=== PATIENT | male | born 1995 | race Caucasian/White ===

== ENCOUNTER 2021-02-07 14:08 | Emergency (ER) | payer BC, SELFPAY ==
--- NOTE | 2021-02-07 14:14 | ED.URI ---
HPI - URI/Sore Throat General Chief Complaint: Upper Respiratory Infection Stated Complaint: fever/joint pain/vomiting Time Seen by Provider: 02/07/21 14:49 Source: patient and RN notes reviewed Mode of arrival: ambulatory Limitations: no limitations History of Present Illness HPI Narrative: 25-year-old male presents with concern for 2-day history of cough, body aches, headache, one episode of vomiting. Reports exposure to Covid and flu. He denies [id number] intervention. MD elicited complaint: cough and sore throat Related Data Allergies Allergy/AdvReac Type Severity Reaction Status Date / Time cefaclor [From Ceclor] Allergy Unknown Verified 02/07/21 14:21 Review of Systems Review of Systems: CONSTITUTIONAL: Reports malaise, fatigue. Denies chills, sweats, or fever. EYES: Denies visual changes, redness, or discharge. ENT: Reports rhinorrhea, congestion. Denies sinus pain, otalgia and sore throat. CARDIOVASCULAR: Denies chest pain, palpitations, or edema. RESPIRATORY: Reports cough. Denies dyspnea. GASTROINTESTINAL: Denies abdominal pain, diarrhea. Reports nausea and vomiting SKIN: Denies rash or itching. MUSCULOSKELETAL: Reports myalgia. NEUROLOGIC: Reports headache. All systems reviewed & are unremarkable except as noted in HPI and below PMFSH Comments At time of signature, agree with nursing past medical, surgical, social and family history. There is no relevant family history pertinent to the presenting complaint Exam Narrative: GENERAL: Well-appearing, well-nourished, and in no acute distress. HEAD: Normocephalic EYES: PERRLA, conjunctivae clear ENT: Nares clear, turbinates edematous and erythematous, clear discharge. Mucous membranes moist. TM pearly thurman with dull light reflex bilaterally; no tragal tenderness. Oropharynx not erythematous without lesions. Tonsils not enlarged and without exudate, no drooling, no hoarseness, no trismus, uvula midline. NECK: Supple. No lymphadenopathy CHEST: Clear to auscultation, breath sounds equal. No wheezing, rhonchi, rales, or stridor. No respiratory distress, speaks in full sentences. HEART: Regular rate and rhythm. No murmur heard. SKIN: Warm, dry, no rash. NEURO: Alert and oriented x3. PSYCH: Normal mood and affect Course Course Emergency Course: Patient is aware of diagnosis, understands and agrees to treatment plan. Anticipatory guidance given. Patient agrees to follow-up as directed and is aware of reasons to seek care at the emergency department. Portions of this record may have been created with voice recognition software Vital Signs Vital signs: Reviewed. MDM - URI/Sore Throat MDM Narrative Medical decision making narrative: Differential diagnosis considered: Moya virus, strep pharyngitis, allergic rhinitis, upper respiratory tract infection, sinusitis, rhinosinusitis, nasopharyngitis. viral pharyngitis, otitis media, otitis externa, pneumonia, bronchitis, viral cough syndrome, viral syndrome, and influenza. Exam findings show no acute concerns or changes; patient is non-toxic appearing and is in no distress. Patient is appropriate for outpatient treatment and follow-up. Lab Data Attestation: I reviewed the patient's lab results. Critical Care Time Critical Care Time Critical Care Time: No Discharge Plan Discharge Clinical Impression: Influenza A Patient Disposition: Home, Self-Care Condition: Stable Instructions: Influenza (ED) Additional Instructions: -Your symptoms are likely caused by a virus, and antibiotic does not cure viral illness. -Take strict precautions to prevent the spread of your virus. Be diligent about covering your cough (even when you are alone) and washing your hands frequently. -You may contagious until you have been symptom and/or fever free for 72 hours without fever reducing medicine - or 10 days from the start of your symptoms - whichever is longer -Alternate Ibuprofen and Tylenol for pain and fever relief (per package
[2021-02-07 14:18] VITALS: BP 134/69; PULSE 124; RESP 20; TEMP 36.1; O2SAT 98
== END 2021-02-07 15:03 | disposition home or self-care (01) ==
PROVIDERS: Emergency Provider Nurse Practitioner
DX: J10.1 Influenza due to other identified influenza virus with other respiratory manifestations (principal); Z20.822 Contact with and (suspected) exposure to COVID-19
CPT/HCPCS: 87426; 87804; 99213; C9803; G0463

== ENCOUNTER 2021-06-20 00:23 | Observation (INO) | payer BC, SELFPAY ==
[2021-06-20] VITALS (12 sets, daily range): BP systolic 112–151; BP diastolic 57–96; PULSE 84–109; RESP 12–108; TEMP 36.1–37.4; O2SAT 95–98; BMI 38.5
[2021-06-20 00:44] LABS: Alveolar/Arterial O2 Gradient 24.9 mmHg; Base Excess ABG 0.7 mEq/l (+/-2.0); Fractional Inspired Oxygen 21 %; HCO3 ABG 25.9 mEq/l (22.0-26.0); Oxygen Content ABG 21.6 %vol (16.0-22.0); Oxygen Saturation ABG 94.6 % (95.0-100.0); Oxyhemoglobin 93.9 % THb (90.0-100.0); PCO2 ABG 43.3 mmHg (35.0-45.0); PO2 FiO2 Ratio Arterial Blood 3.48 %; Total Hemoglobin 16.4 g/dL (12.0-18.0); pH ABG 7.394 (7.350-7.450)
[2021-06-20 00:49] LABS: Device ROOM AIR; Modified Allen's Test Unable to perform; Site Drawn LEFT RADIAL
--- NOTE | 2021-06-20 00:57 | ECG_ITS ---
Measurements Intervals [place] Rate: 108 P: 63 [place]: 134 QRS: -11 QRSD: 110 T: 61 QT: 274 QTc: 368 Interpretive Statements SINUS TACHYCARDIA INCOMPLETE RIGHT BUNDLE BRANCH BLOCK NONSPECIFIC ST & T-WAVE ABNORMALITY- DIFFUSE LEADS ABNORMAL ECG Electronically Signed On 06-20-2021 6:33:35 CDT by Cristiano Hayden D.O.
[2021-06-20 00:59] LABS: Basophils Percent Auto 0.5 % (0.2-1.2); Eosinophils Absolute Auto 0.2 K/mm3 (0-0.3); Eosinophils Percent Auto 2.6 % (0-4.4); Hematocrit 47.5 % (42.0-52.0); Immature Granulocyte Absolute 0.02 K/mm3 (0.00-0.031); Immature Granulocyte Percent A 0.2 % (0-0.5); Lymphocytes Absolute Auto 2.95 K/mm3 (0.9-3.2); Lymphocytes Percent Auto 33.7 % (18.3-44.2); Mean Corpuscular HGB Conc 33.7 g/dl (32-36); Mean Corpuscular Hemoglobin 28.8 pg (26-34); Mean Corpuscular Volume 85.6 fl (80-100); Mean Platelet Volume 10.2 fl (7.4-10.4); Monocytes Absolute Auto 0.8 K/mm3 (0.1-0.6); Monocytes Percent Auto 9.3 % (2.6-8.5); Neutrophils Absolute Auto 4.7 K/mm3 (1.3-6.7); Neutrophils Percent Auto 53.7 % (45.5-73.1); Platelet Count Result 236 k/mm3 (150-375); Red Blood Count 5.55 M/mm3 (4.6-6.20); Red Cell Distribution Width 13.1 % (11.5-14.5); White Blood Count 8.8 K/mm3 (4.5-10.0)
[2021-06-20 01:01] LABS: Appearance Urine Clear (Clear); Bilirubin Urine Negative (Negative); Blood Urine 1+ (Negative); Color Urine Yellow (Yellow); Glucose Urine UA Negative (Negative); Ketones Urine Negative (Negative); Leukocyte Esterase Ur Negative LEU/UL (Negative); Nitrate Urine Negative (Negative); Protein Urine 1+ mg/dL (Negative); Specific Grav Ur >= 1.030 (1.001-1.035); Urobilinogen Urine 0.2 mg/dL (<2.0); pH Urine 5.5 (5.0-9.0)
[2021-06-20 01:03] LABS: Ammonia < 9 umol/L (9-30)
--- NOTE | 2021-06-20 01:07 | ED.GENADULT ---
HPI - General Adult General Chief complaint: Overdose Stated complaint: OD History of Present Illness HPI narrative: 26-year-old male presented to the emergency department for evaluation after a reported intentional overdose. Patient got into an argument with his girlfriend and reportedly took multiple pills. Tylenol was a possibility, but patient was also found with an empty bottle of Benadryl that held 365 tablets of 25 mg. Related Data Home Medications Medication Instructions Recorded Confirmed No Home Medications 06/20/21 06/20/21 Allergies Allergy/AdvReac Type Severity Reaction Status Date / Time cefaclor [From Ceclor] Allergy Unknown Verified 02/07/21 14:21 Review of Systems Review of Systems: ROS unobtainable: Yes unobtainable due to medical condition PMF Social History Social History Smoking status: Never smoker Alcohol intake: never Substance use: never Spiritual care concerns: No Exam Narrative: APPEARANCE: Somnolent and disorientated HEAD: normocephalic, atraumatic. EYES: PERRLA/EOMI, conjunctivae clear. NOSE: Normal no drainage NECK: Supple. No adenopathy, no masses. RESPIRATORY: Airway patent, respirations nonlabored. Clear to auscultation bilaterally, no rales, rhonchi, wheezing. CARDIOVASCULAR: Regular rate and rhythm without murmurs rubs or gallops. ABDOMINAL: Soft, nontender, nondistended, normal bowel sounds MUSCULOSKELETAL: Moves all extremities. Strength/ROM intact, No edema, No calf tenderness. NEURO: Alert. Cranial nerves II through XII intact. Grossly intact. Present gag reflex SKIN: Warm, dry. Normal Color PSYCHIATRIC: Normal affect/mood. Course Course Emergency Course: Patient is being admitted for a suspected diphenhydramine overdose. Poison control was consulted. They state the peak is 2 to 3 hours after ingestion but that due to the potential amount of his ingestion the peak may be delayed. Case was discussed with the fur stretcher and patient was accepted for admission by the hospitalist. Patient was stable at time of transfer to the floor. Patient's Tylenol at the first lab draw was negative. Patient's UDS is otherwise negative and alcohol was negative Vital Signs Vital signs: Vital Signs Temperature 97 F L 06/20/21 00:22 Pulse Rate 109 H 06/20/21 00:22 Respiratory Rate 24 H 06/20/21 00:22 Blood Pressure 142/94 H 06/20/21 00:22 Pulse Oximetry 95 06/20/21 00:22 Temperature 98.2 F 06/20/21 03:43 Pulse Rate 103 H 06/20/21 06:00 Respiratory Rate 19 06/20/21 06:00 Blood Pressure 134/82 06/20/21 06:00 Pulse Oximetry 95 06/20/21 06:00 Medical Decision Making Vital Signs Vital Signs: Vital Signs Temperature 97 F L 06/20/21 00:22 Pulse Rate 109 H 06/20/21 00:22 Respiratory Rate 24 H 06/20/21 00:22 Blood Pressure 142/94 H 06/20/21 00:22 Pulse Oximetry 95 06/20/21 00:22 Temperature 98.2 F 06/20/21 03:43 Pulse Rate 103 H 06/20/21 06:00 Respiratory Rate 19 06/20/21 06:00 Blood Pressure 134/82 06/20/21 06:00 Pulse Oximetry 95 06/20/21 06:00 Lab Data Result diagrams: 06/20/21 00:44 06/20/21 00:44 Labs: Lab Results 06/20/21 06/20/21 06/20/21 Range/Units 00:44 00:44 00:44 WBC (4.5-10.0) K/mm3 RBC (4.6-6.20) M/mm3 Hgb (14.0-18.0) g/dL Hct (42.0-52.0) % MCV (80-100) fl MCH (26-34) pg MCHC (32-36) g/dl RDW (11.5-14.5) % Plt Count (150-375) k/mm3 MPV (7.4-10.4) fl Immature Gran % (Auto) (0-0.5) % Neut % (Auto) (45.5-73.1) % Lymph % (Auto) (18.3-44.2) % Scott % (Auto) (2.6-8.5) % Eos % (Auto) (0-4.4) % Baso % (Auto) (0.2-1.2) % Lymph # (Auto) (0.9-3.2) K/mm3 Scott # (Auto) (0.1-0.6) K/mm3 Eos # (Auto) (0-0.3) K/mm3 Baso # (Auto) (0.0-0.1) K/mm3 Abs Immat Gran (auto) (0.00-0.031) K/mm3 Absolute Neuts (auto) (1.3-6.7) K/mm3 Absolute Nucleated RBC (0.0
[2021-06-20 01:10] LABS: Alanine Aminotransferase 37 U/L (6-50); Albumin Level 4.6 g/dL (3.5-5.1); Alkaline Phosphatase 78 U/L (38-126); Anion Gap 11 mmol/L (8-16); Aspartate Amino Transferase 36 U/L (17-59); Bilirubin,Total 0.3 mg/dL (0.2-1.3); Blood Urea Nitrogen 18 mg/dL (9-20); Calcium 9.1 mg/dL (8.4-10.2); Carbon Dioxide 26 mmol/L (22-30); Chloride 102 mmol/L (98-107); Estimated Glomerular Filt Rate > 60; Glucose 119 mg/dL (65-110); Magnesium 1.8 mg/dL (1.6-2.3); Phosphorus 3.5 mg/dL (2.5-4.5); Potassium 3.3 mmol/L (3.4-5.0); Sodium 139 mmol/L (137-145)
[2021-06-20 01:11] LABS: Bacteria Urine Trace /hpf; Mucus Urine Rare /lpf; Squamous Epithelial Cell Urine Rare /hpf (Few)
[2021-06-20 01:12] LABS: Partial Thromboplastin Time 22.9 SECONDS (22.3-36.8); Prothrombin Time 12.7 Seconds (11.1-14.7)
[2021-06-20 01:15] LABS: Add Urine Microscopic? YES; Amphetamine Screen Urine Negative (Negative); Barbiturate Screen Urine Negative (Negative); Benzodiazepines Screen Urine Negative (Negative); Cannabinoid Screen Urine Negative (Negative); Cocaine Screen Urine Negative (Negative); Methadone Screen Urine Negative (Negative); Opiate Screen Urine Negative (Negative); Phencyclidine Screen Urine Negative (Negative)
[2021-06-20 01:16] LABS: Acetaminophen < 10 ug/mL (10-30); Ethanol < 10 mg/dL (<10); Salicylate < 1.0 mg/dL (2-20)
[2021-06-20 01:33] LABS: Digoxin < 0.4 ng/mL (0.8-2.0)
--- NOTE | 2021-06-20 02:47 | PM.IMHP ---
H&P: HPI History of Present Illness Date/Time: 06/20/21 02:47 Chief Complaint: Altered mental status. Narrative: This is a 26-year-old male with past medical history significant for obesity. Patient is brought to the emergency room via EMS after girlfriend found him to be altered, disoriented, confused, acting weird patient's girlfriend found an empty Benadryl bottle in the trash. According to girlfriend they had a fight and she left the house does came back an hour later and this was the situation. No prior history of psychiatric illness or suicidal attempt in the past. Patient has been in his usual state of health according to his girlfriend. Patient was unable to give any history at the time of my visit he was having emesis, when asked why he was in the hospital his said that he be passed out and dozed off. Poison Control was informed and was advised to place the patient in observation. Patient has been admitted for further evaluation management and treatment. Review of Systems Review of Systems: ROS unobtainable: Yes unobtainable due to mental status (Confusion, disorientation.) [facility] Social History Social History Smoking status: Never smoker Alcohol intake: never Substance use: never Spiritual care concerns: No Meds Home Medications and Allergies Home Medications Medication Instructions Recorded Confirmed Type No Home Medications 06/20/21 06/20/21 History Allergies Allergy/AdvReac Type Severity Reaction Status Date / Time cefaclor [facility]] Allergy Unknown Verified 02/07/21 14:21 Vital Signs Vital Signs - 24 hr 06/20/21 00:22 06/20/21 02:13 06/20/21 02:15 Temperature 97 F L Pulse Rate 109 H 103 H Respiratory Rate 24 H 12 108 H Blood Pressure 142/94 H 136/83 Pulse Oximetry 95 98 Exam Narrative: Patient is laying in a stretcher. Const: General: comfortable, no acute distress, well developed, intoxicated appearing and well groomed Nutritional Appearance: obese Orientation/consciousness: oriented to person Limitations: altered mental status HENMT: Head: normal to inspection, normocephalic and atraumatic Ears: hearing grossly normal bilaterally General nose exam: Normal external nose present Face and sinus: normal facial exam Mouth: Yes Normal oral and palatal mucosa present Eyes: General: appearance normal, both eyes and all related structures Alignment and Position: alignment normal Sclera: sclerae normal Pupils: Equal, round and reactive pupils present EOM: EOMs intact bilaterally Neck: Neck: normal visual inspection, full ROM, no lymphadenopathy, supple and no JVD Thyroid: thyroid normal Lymphatic: no lymphadenopathy noted Resp: Effort & Inspection: normal respiratory effort and able to speak in complete sentences Auscultation: clear to auscultation bilaterally, no crackles, no rales, no rhonchi and no wheezes Cardio: Jugular venous distension: no JVD Rate: tachycardic Rhythm: regular rhythm Heart sounds: S1 normal heart sound present and S2 normal heart sound present GI: Inspection: obesity GI Palp: Yes Soft to palpation, No Tenderness to palpation present (GI), No Guarding due to palpation present (GI), Yes No hepatosplenomegaly present and No Rebound tenderness present : General: Yes deferred Skin: Rashes: no rashes Wounds: no wounds Neuro: General: oriented to person and CN's II-XI intact bilaterally Cranial nerves: Yes CN's II-XII intact bilaterally and Yes Equal, round and reactive pupils present Cognition (Neuro): abnormal cognition (Confusion, disorientation.) Speech: normal speech Gait exam (Neuro): Unable to assess gait Motor exam (neuro): 5/5 motor strength present throughout Extrem: General: normal to inspection, full ROM, no joint enlargement and no pedal edema Psych: Appearance: grossly normal Speech and movement: Normal speech and movement present Affect: Blunted affect present Attitude: cooperative H&P: Results Labs Labs: Nilda
--- NOTE | 2021-06-20 03:45 | PC.NURSE ---
pt amitted to [facility] for suicide attempt placed on monitor cooperative flat affect
[2021-06-20] MEDS: SODIUM CHLORIDE 0.9% IV 1,000 ML 100 ML IV CONT ×2 (03:50→18:29)
[2021-06-20] MEDS: ONDANSETRON INJ 4 MG/2 ML VIAL IV PUSH (03:51)
--- NOTE | 2021-06-20 09:00 | ECG_ITS ---
Measurements Intervals [place] Rate: 87 P: 71 [place]: 130 QRS: -4 QRSD: 102 T: 49 QT: 376 QTc: 454 Interpretive Statements SINUS RHYTHM BORDERLINE T WAVE ABNORMALITY- INFERIOR LEADS BORDERLINE ECG Electronically Signed On 06-20-2021 9:51:52 CDT by Cristiano Hayden D.O.
[2021-06-20] MEDS: POTASSIUM CHLORIDE 20 MEQ TABLET 40 MEQ PO (09:59)
[2021-06-20] MEDS: ENOXAPARIN 40 MG/0.4 ML SYRINGE SUB-Q (09:59)
[2021-06-20] MEDS: MAGNESIUM OXIDE 400 MG TABLET PO (09:59)
--- NOTE | 2021-06-20 10:05 | WPDCNINT ---
Assessment and Plan Assessment and plan (1) Anticholinergic drug overdose: Code(s): T44.3X1A - Poisoning by other parasympatholytics [anticholinergics and antimuscarinics] and spasmolytics, accidental (unintentional), initial encounter Status: Acute Assessment and Plan: Patient took at least 10-15 pills of 25 mg Benadryl His mental status has improved significantly and he is now alert oriented x3 I repeated EKG this morning and his QRS was 102 which is almost close to normal I will repeat EKG at noon but hold bicarb infusion at this time Replace electrolytes His UDS alcohol Tylenol and salicylate level were negative Poison control was notified (2) Suicide attempt: Code(s): T14.91XA - Suicide attempt, initial encounter Status: Acute Assessment and Plan: Patient will be evaluated by crisis management for evaluation of depression and treatment options once he is medically cleared (3) Electrolyte abnormality: Code(s): E87.8 - Other disorders of electrolyte and fluid balance, not elsewhere classified Status: Acute Assessment and Plan: Replace low potassium and magnesium Additional Plan DVT prophylaxis -Lovenox Nutrition -regular diet Code Status - Full Code [place] Consult Note Consult date: 06/20/21 HPI: Gwyn Alejo is a 26 year old male with no significant past medical history except obesity was brought yesterday to ER with altered mental status. Patient states that he takes 5 pills of 25 mg Benadryl every night to help him sleep. Last night he was feeling anxious and felt suicidal and took at least 10-15 pills of 25 mg Benadryl. He denies any past history of depression or treatment for depression. He denies any past suicidal attempts or ideations but he states that he has been feeling depressed for a while. He states that he is having lot of issues in his personal life. He denies any physical complaints yesterday and was feeling his usual self. Patient denied any fever, chest pain, shortness of breath, cough, nausea, vomiting, abdominal pain, diarrhea, headache or constipation yesterday. Patient's girlfriend found him confused altered and disoriented and brought him to the ER patient was drowsy on presentation to ED was admitted for monitoring and supportive care. Patient was started on IV fluid This morning patient states he feels better denies any complaints. All other systems reviewed and were negative Review of Systems Review of Systems: All systems reviewed & are unremarkable except as noted in HPI and below (HPI) [facility] Past Medical History Medical History (Updated 06/20/21 @ 10:10 by James Wang MD) Obesity (BMI 30.0-34.9) Social History Social History Smoking status: Never smoker Alcohol intake: never Substance use: never Spiritual care concerns: No Meds Home Medications and Allergies Home Medications Medication Instructions Recorded Confirmed Type No Home Medications 06/20/21 06/20/21 History Allergies Allergy/AdvReac Type Severity Reaction Status Date / Time cefaclor [From Ceclor] Allergy Unknown Verified 02/07/21 14:21 Vital Signs Vital Signs - 24 hr 06/20/21 00:22 06/20/21 02:13 06/20/21 02:15 Temperature 36.1 C L Pulse Rate 109 H 103 H Respiratory Rate 24 H 12 108 H Blood Pressure 142/94 H 136/83 Pulse Oximetry 95 98 06/20/21 03:37 06/20/21 03:39 06/20/21 03:43 Temperature 36.8 C Pulse Rate 103 H 103 H 103 H Respiratory Rate 23 H 21 H Blood Pressure 146/96 H Pulse Oximetry 96 97 06/20/21 06:00 06/20/21 08:00 Temperature 36.9 C Pulse Rate 103 H 100 Respiratory Rate 19 24 H Blood Pressure 134/82 137/80 Pulse Oximetry 95 97 Exam Narrative: General: Pt is alert awake and in NAD. He is calm Lungs/Chest: Trachea central Clear BS B/L, No crackles or wheezing. Cardiac: RRR. Normal S1 S2. No murmurs Circulation: Pedal pulses are intact and symmetrical. Abdomen: Normal
--- NOTE | 2021-06-20 13:00 | ECG_ITS ---
Measurements Intervals [place] Rate: 90 P: 61 ND: 108 QRS: -1 QRSD: 97 T: 47 QT: 354 QTc: 435 Interpretive Statements SINUS RHYTHM WITH SHORT ND INTERVAL BASELINE ARTIFACT- I, II, III, AVF BORDERLINE ECG Electronically Signed On 06-20-2021 13:13:44 CDT by Cristiano Hayden D.O.
--- NOTE | 2021-06-20 22:21 | PC.NURSE ---
Poison control called and was updated on patient status. They stated that the case is now closed as of 2124.
[2021-06-21] VITALS: BP 125/84; PULSE 92; RESP 25; TEMP 37.1; O2SAT 96
[2021-06-21 04:00] VITALS: BP 112/74; PULSE 72; RESP 14; TEMP 36.8; O2SAT 96
[2021-06-21] MEDS: SODIUM CHLORIDE 0.9% IV 1,000 ML 100 ML IV CONT (04:31)
[2021-06-21 04:43] LABS: Hematocrit 45.4 % (42.0-52.0); Hemoglobin 14.9 g/dL (14.0-18.0); Mean Corpuscular HGB Conc 32.8 g/dl (32-36); Mean Corpuscular Hemoglobin 28.9 pg (26-34); Mean Platelet Volume 10.2 fl (7.4-10.4); Platelet Count Result 193 k/mm3 (150-375); Red Blood Count 5.16 M/mm3 (4.6-6.20); Red Cell Distribution Width 13.4 % (11.5-14.5); White Blood Count 8.7 K/mm3 (4.5-10.0)
[2021-06-21 04:56] LABS: Alanine Aminotransferase 35 U/L (6-50); Albumin Level 4.3 g/dL (3.5-5.1); Alkaline Phosphatase 80 U/L (38-126); Anion Gap 8 mmol/L (8-16); Aspartate Amino Transferase 31 U/L (17-59); Bilirubin,Total 0.8 mg/dL (0.2-1.3); Blood Urea Nitrogen 16 mg/dL (9-20); Calcium 8.4 mg/dL (8.4-10.2); Carbon Dioxide 27 mmol/L (22-30); Chloride 103 mmol/L (98-107); Estimated CRCL calculation 136 ml/min; Estimated Glomerular Filt Rate > 60; Glucose 104 mg/dL (65-110); Phosphorus 3.3 mg/dL (2.5-4.5); Sodium 138 mmol/L (137-145)
[2021-06-21 07:48] VITALS: BP 112/74; PULSE 86; RESP 15; TEMP 36.8; O2SAT 93
[2021-06-21 08:00] VITALS: PULSE 74; PULSE 86; RESP 15; O2SAT 93
--- NOTE | 2021-06-21 08:55 | PM.IMPN ---
Progress Note: A&P Assessment and Plan (1) Anticholinergic drug overdose: Code(s): T44.3X1A - Poisoning by other parasympatholytics [anticholinergics and antimuscarinics] and spasmolytics, accidental (unintentional), initial encounter Status: Acute Assessment and Plan: Patient took at least 10-15 pills of 25 mg Benadryl His mental status has improved significantly and he is now alert oriented x3 Serial EKGs showed normalization of QRS Electrolytes are in normal range His UDS alcohol Tylenol and salicylate level were negative Poison control was notified on presentation (2) Suicide attempt: Code(s): T14.91XA - Suicide attempt, initial encounter Status: Acute Assessment and Plan: Patient will be evaluated by crisis management today for evaluation of depression and treatment options Sitter at bedside (3) Electrolyte abnormality: Code(s): E87.8 - Other disorders of electrolyte and fluid balance, not elsewhere classified Status: Acute Assessment and Plan: Improved potassium and magnesium after replacement Additional Plan DVT prophylaxis -Lovenox Nutrition -regular diet Code Status - Full Code Subjective Date/time seen: 06/21/21 08:55 No new complaints. Afebrile with stable vital signs overnight. He states he slept well. Denies any new complaints. Patient denies fever, chest pain, shortness of breath, cough, nausea vomiting, abdominal pain,, diarrhea, headache or constipation. All other systems were reviewed and were negative Review of Systems Review of Systems: All systems reviewed & are unremarkable except as noted in HPI and below (HPI) Exam Narrative: General: Pt is alert awake and in NAD. He is calm Lungs/Chest: Trachea central Clear BS B/L, No crackles or wheezing. Cardiac: RRR. Normal S1 S2. No murmurs Circulation: Pedal pulses are intact and symmetrical. Abdomen: Normal bowel sounds. Obese. Soft. NT. ND. Extremities: No clubbing, cyanosis or edema. Warm : Yoder in place Neurologic: Follows commands. Moves all 4 extremities PERRL AO x3 Skin: No Rash Psychiatric: Flat affect normal speech Objective Data Vital Signs Vital Signs: Vital Signs - 24 hr 06/20/21 10:00 06/20/21 12:00 06/20/21 16:00 Temperature 36.8 C 36.7 C 37.1 C Pulse Rate 88 84 95 Respiratory Rate 18 16 16 Blood Pressure 151/85 H 124/89 112/57 L Pulse Oximetry 96 95 96 06/20/21 20:00 06/21/21 00:00 06/21/21 04:00 Temperature 37.4 C 37.1 C 36.8 C Pulse Rate 98 92 72 Respiratory Rate 20 25 H 14 Blood Pressure 124/75 125/84 112/74 Pulse Oximetry 97 96 96 06/21/21 07:48 Temperature 36.8 C Pulse Rate 86 Respiratory Rate 15 Blood Pressure 112/74 Pulse Oximetry 93 Intake/Output Intake/Output: Intake & Output 06/18/21 06/19/21 06/20/21 06/21/21 23:59 23:59 23:59 23:59 Intake Total 2230 1000 Output Total 0 0 Balance 2230 1000 Meds/Results Medications: Active Medications Generic Name Dose Route Start Last Admin Trade Name Freq PRN Reason Stop Dose Admin Enoxaparin Sodium 40 mg 06/20/21 09:00 06/20/21 09:59 Enoxaparin 40 Mg/0.4 Ml Syringe SUB-Q 40 mg DAILY LYNN Administration Sodium Chloride 1,000 mls @ 100 mls/hr 06/20/21 02:15 06/21/21 04:31 Normal Saline Iv IV CONT 100 mls/hr .Q10H LYNN Administration Ondansetron HCl 4 mg 06/20/21 02:11 Ondansetron Inj 4 Mg/2 Ml Vial IV PUSH Q4H PRN Nausea Labs Labs: Laboratory Results - last 24 hr 06/21/21 06/21/21 04:32 04:32 WBC 8.7 RBC 5.16 Hgb 14.9 Hct 45.4 MCV 88.0 MCH 28.9 MCHC 32.8 RDW 13.4 Plt Count 193 MPV 10.2 Sodium 138 Potassium 4.0 Chloride 103 Carbon Dioxide 27 Anion Gap 8 BUN 16 Creatinine 0.90 Estim Creat Clear Calc 136 Estimated GFR > 60 Glucose 104 Calcium 8.4 Phosphorus 3.3 Magnesium 2.0 Total Bilirubin 0.8 AST 31 ALT 35 Alkaline Phosphatase 80 Total Protein 7.0 A
[2021-06-21] MEDS: ENOXAPARIN 40 MG/0.4 ML SYRINGE SUB-Q (09:03)
[2021-06-21 12:00] VITALS: BP 149/98; PULSE 81; PULSE 86; RESP 15; TEMP 37; O2SAT 97
[2021-06-21 13:40] LABS: SARS-CoV-2 RNA PCR Negative
[2021-06-21 16:00] VITALS: PULSE 85; RESP 18; TEMP 37.1; O2SAT 98
--- NOTE | 2021-06-21 17:57 | PM.TDS ---
Transfer Discharge Sum: Prov Provider Date of admission: 06/20/21 02:11 Primary care physician: PHYSICIAN NOT ON STAFF Admitting clinician: Katerin Colunga MD Consults: 06/20/21 02:12 Consult to Physician Routine Comment: Consulting Provider: Caridad Rollins Reason for consultation: Diphenhydramine overdose Has provider been notified: Yes DS: Admitting Diagnosis Discharge Date 06/21/2021 Admitting Diagnosis alter mental status DS: Discharge Diagnosis Discharge Diagnosis (1) Anticholinergic drug overdose: Code(s): T44.3X1A - Poisoning by other parasympatholytics [anticholinergics and antimuscarinics] and spasmolytics, accidental (unintentional), initial encounter Status: Acute Assessment and Plan: Patient took at least 10-15 pills of 25 mg Benadryl His mental status has improved significantly and he is now alert oriented x3 Serial EKGs showed normalization of QRS Electrolytes are in normal range His UDS alcohol Tylenol and salicylate level were negative Poison control was notified on presentation (2) Suicide attempt: Code(s): T14.91XA - Suicide attempt, initial encounter Status: Acute Assessment and Plan: Patient will be evaluated by crisis management today for evaluation of depression and treatment options Sitter at bedside (3) Electrolyte abnormality: Code(s): E87.8 - Other disorders of electrolyte and fluid balance, not elsewhere classified Status: Acute Assessment and Plan: Improved potassium and magnesium after replacement Transfer Discharge Sum: Med Medications Active and Home Medications: Home Medications No Home Medications 06/20/21 [History Confirmed 06/20/21] Active Medications Enoxaparin Sodium (Enoxaparin 40 Mg/0.4 Ml Syringe) 40 mg SUB-Q DAILY [facility] Last Admin: 06/21/21 09:03 Dose: 40 mg Documented by: Sodium Chloride (Normal Saline Iv) 1,000 mls @ 100 mls/hr IV CONT .Q10H [facility] Last Admin: 06/21/21 04:31 Dose: 100 mls/hr Documented by: Ondansetron HCl (Ondansetron Inj 4 Mg/2 Ml Vial) 4 mg IV PUSH Q4H PRN PRN Reason: Nausea Transfer Discharge Sum: Hosp Hospital Course Hospital course: Gwyn Alejo is a 26 year old male Patient with history of psychiatric and suicidal attempt had a long discussion and patient is agreed to go to inpatient psychiatry for will discharge patient today Time Spent with Patient Time attestation: Total time spent providing and/or coordinating transfer services: Exam Narrative: General: Pt is alert awake and in NAD. He is calm Lungs/Chest: Trachea central Clear BS B/L, No crackles or wheezing. Cardiac: RRR. Normal S1 S2. No murmurs Circulation: Pedal pulses are intact and symmetrical. Abdomen: Normal bowel sounds. Obese. Soft. NT. ND. Extremities: No clubbing, cyanosis or edema. Warm : Yoder in place Neurologic: Follows commands. Moves all 4 extremities PERRL AO x3 Skin: No Rash Psychiatric: Flat affect normal speech DS: Data Data Completed and Pending Labs on day of discharge: Labs from last 24 hours 06/21/21 06/21/21 06/21/21 12:59 04:32 04:32 WBC 8.7 RBC 5.16 Hgb 14.9 Hct 45.4 MCV 88.0 MCH 28.9 MCHC 32.8 RDW 13.4 Plt Count 193 MPV 10.2 Sodium 138 Potassium 4.0 Chloride 103 Carbon Dioxide 27 Anion Gap 8 BUN 16 Creatinine 0.90 Estim Creat Clear Calc 136 Estimated GFR > 60 Glucose 104 Calcium 8.4 Phosphorus 3.3 Magnesium 2.0 Total Bilirubin 0.8 AST 31 ALT 35 Alkaline Phosphatase 80 Total Protein 7.0 Albumin 4.3 SARS-CoV-2 RNA (RT-PCR) Negative
[2021-06-23 08:31] LABS: Carbamazepine Tegretol <0.2 mcg/mL (4.0-12.0)
== END 2021-06-21 18:22 ==
LOC: ANHED 02:11 → ANHICU 06-22 11:41
PROVIDERS: Internal Medicine; Admitting Provider Internal Medicine; Emergency Provider Emergency Medicine; Visit Provider Family Medicine
DX: T45.0X2A Poisoning by antiallergic and antiemetic drugs, intentional self-harm, initial encounter (principal); T14.91XA Suicide attempt, initial encounter; E66.9 Obesity, unspecified; Z68.37 Body mass index [BMI] 37.0-37.9, adult; E87.8 Other disorders of electrolyte and fluid balance, not elsewhere classified; Z20.822 Contact with and (suspected) exposure to COVID-19
CPT/HCPCS: 36415; 36600; 80053; 80156; 80162; 80307; 81001; 82140; 82805; 83735; 84100; 84443; 85025; 85027; 85610; 85730; 93005; 96360; 96361; 96372; 96374; 99285; A9270; C9803; G0378; G0379; J1650; J2405; J7030; U0003; U0005